=== PATIENT | male | born 1990 | race Two or more races ===

== ENCOUNTER 2017-11-08 15:49 | Emergency (ER) | payer OTHER ==
[~2017-11-08] VITALS: Ht 175.3 cm; Wt 90.7 kg
[2017-11-08] MEDS ORDERED: KETOROLAC TROMETH 60MG/2ML VIAL IM ONE (17:00)
[2017-11-08 17:20] VITALS: BP 124/72
== END 2017-11-08 17:24 | disposition home or self-care (01) ==
LOC: ER 15:55
DX: S62.303A Unspecified fracture of third metacarpal bone, left hand, initial encounter for closed fracture (principal); F12.10 Cannabis abuse, uncomplicated; V43.52XA Car driver injured in collision with other type car in traffic accident, initial encounter; Y93.89 Activity, other specified; Y99.8 Other external cause status; Y92.410 Unspecified street and highway as the place of occurrence of the external cause
CPT/HCPCS: 29125; 73130; 96372; 99284; J1885